=== PATIENT | female | born 1995 | race Caucasian/White ===

== ENCOUNTER 2017-06-02 15:34 | Emergency (ER) | payer SELFPAY ==
[~2017-06-02] VITALS: Ht 165.1 cm; Wt 81.0 kg
[2017-06-02 15:36] VITALS: BP 131/83
[2017-06-02] MEDS ORDERED: KETOROLAC 30 MG/1 ML IM ONE (16:30)
[2017-06-02] MEDS ORDERED: KETOROLAC 30 MG/1 ML ONE (16:47)
== END 2017-06-02 17:01 | disposition home or self-care (01) ==
LOC: ED 17:00
DX: S43.401A Unspecified sprain of right shoulder joint, initial encounter (principal); V89.2XXA Person injured in unspecified motor-vehicle accident, traffic, initial encounter; Y93.89 Activity, other specified; Y92.410 Unspecified street and highway as the place of occurrence of the external cause; Y99.8 Other external cause status
CPT/HCPCS: 73030; 96372; 99284; J1885